=== PATIENT | female | born 1950 | race Native Hawaiian/Other Pacific Islander ===

== ENCOUNTER → 2016-11-07 | Outpatient (CLI) | payer OTHER | LOC: YCFC.O 09:32 | PROVIDERS: ATTEND Nurse Practitioner Family | DX: E78.5 Hyperlipidemia, unspecified (principal) ==

== ENCOUNTER → 2017-05-31 | Outpatient (CLI) | payer OTHER ==
--- NOTE | 2017-06-03 14:12 | MAM ---
EXAM DESCRIPTION: 3D Screening BILATERAL CLINICAL HISTORY: 66 years, Female, Screening mammogram COMPARISON: None TECHNIQUE: CC and MLO digital mammograms with 3-D tomosynthesis. No CAD utilized. FINDINGS: The breast parenchyma is heterogeneously dense which may decrease the sensitivity of mammography. There is no dominant mass nor any suspicious microcalcifications. Benign microcalcifications are present. IMPRESSION: BIRAD CATEGORY: 2 BENIGN FOLLOW-UP: Routine mammography screening. Electronically signed by: Anuel Vaca MD 06/03/2017 2:11 PM CDT
== END ==
LOC: MAMMO 09:41
PROVIDERS: ATTEND Nurse Practitioner Family
DX: Z12.31 Encounter for screening mammogram for malignant neoplasm of breast (principal)
CPT/HCPCS: 77063; G0202

== ENCOUNTER → 2018-01-08 | Outpatient (CLI) | payer OTHER ==
--- NOTE | 2018-01-09 08:28 | RAD ---
EXAM DESCRIPTION: Wrist,Left 3 Views CLINICAL HISTORY: 67 years, Female, UNSPECIFIED FRACTURE OF LEFT FOREARM COMPARISON: None FINDINGS: Left wrist 3 x-ray views reveals impacted mildly comminuted fracture of the distal left radius with fracture of the ulnar styloid. Fracture lines extend into the joint. On the oblique view, the longitudinally oriented distal radial fracture has a gap of 1.5 mm. The gap at the ulnar styloid avulsion is 1 mm. There is mild impaction of the distal radius. Distal radial articular surface is aligned with the lunate. Normal orientation of the carpal bones. Degenerative changes are seen in the lateral carpus and at the first metacarpal phalangeal joint. Prominent spurring at the interphalangeal joint of the thumb. Carpal relationships are well-maintained. Distal radius and ulna appear intact. Normal metacarpals. No significant arthritic changes are observed. IMPRESSION: Negative for fracture or dislocation. Electronically signed by: Toño Fernandez MD 01/09/2018 8:25 AM CDT
== END ==
LOC: RAD 10:34
PROVIDERS: ATTEND Orthopaedic Surgery
DX: S52.92XA Unspecified fracture of left forearm, initial encounter for closed fracture (principal)

== ENCOUNTER → 2018-01-17 | Outpatient (CLI) | payer OTHER ==
--- NOTE | 2018-01-18 08:14 | RAD ---
EXAM DESCRIPTION: Wrist,Left 3 Views CLINICAL HISTORY: 67 years, Female, PAIN IN LEFT WRIST COMPARISON: Previous study January 08, 2018 FINDINGS: Left wrist 3 x-ray views reveals comminuted fracture of the distal radius with impaction and mild splaying of fragments. Fracture line extends into the radiocarpal joint. Ulnar styloid is avulsed. The configuration is unchanged compared to previous study. No definite callus formation. Degenerative changes are seen in the lateral carpus and at the interphalangeal joint of the thumb. IMPRESSION: Unchanged alignment of distal left radial and ulnar fractures. Electronically signed by: Toño Fernandez MD 01/18/2018 8:12 AM CDT
== END ==
LOC: RAD 09:05
PROVIDERS: ATTEND Orthopaedic Surgery
DX: S52.502D Unspecified fracture of the lower end of left radius, subsequent encounter for closed fracture with routine healing (principal)

== ENCOUNTER → 2020-09-29 | Outpatient (CLI) | payer OTHER | LOC: LAB.O 10:51 | PROVIDERS: ATTEND Internal Medicine Gastroenterology | DX: R19.7 Diarrhea, unspecified (principal) ==

== ENCOUNTER → 2020-11-25 | Outpatient (CLI) | payer OTHER ==
--- NOTE | 2020-11-26 16:42 | CT ---
Procedure: CT LUNG SCREENING Exam Date: November 25, 2020. Ordering Provider: Stephanie Gordillo Clinical Indication: HISTORY OF TOBACCO ABUSE . Current cigarette smoker. 15 pack years. This patient meets eligibility criteria for low-dose CT lung cancer screening. Comparison: Baseline lung screening CT scan. Abdominal pelvic CT scan on this visit. Technique: Using a multislice scanner, sequential helical axial imaging was obtained in the thorax, 2.5 mm thickness, 2.5 mm separation, from the level of the thoracic inlet through the lung bases without IV contrast. A low dose protocol was utilized for BMI less than 30: BMI: 21. CTDI: 1.76 mGy. 120. kVp. 45 mA. DLP 69 mGy-cm. 2D sagittal and coronal reconstructed images, 6.0 mm thickness, were obtained. This exam was performed according to our departmental dose optimization program which includes use of automated exposure control, adjustment of the mA and/or kV according to patient size and/or use of iterative reconstruction technique. Nodule measurements under 10 mm are given as mean value of 3 axes diameters. FINDINGS: Lungs and large airways: Bilateral small blebs in a centrilobular distribution predominantly upper lobes. 3 mm solid subpleural nodule in the lateral apex, versus focal pleural thickening on axial series 2, image 26. 3 mm triangular-shaped nodule associated with the lateral horizontal fissure and the right middle lobe, on axial series 2, image 73. Bilateral lower lobe pleural-parenchymal scarring also in the inferior lingula. No abnormal nodules and no masses. No focal infiltrates. Pleura and space: Bilateral apical pleural thickening. No acute process. Mediastinum and donal: evaluation limited by low dose technique and lack of IV contrast. 9 mm smooth margin azygous node. Soft tissue structure with heterogeneous density in the fork between the origins of the right and left pulmonary arteries extending inferiorly and abutting the enhancing superior-medial left pulmonary venous trunk 2.7 x 1.8 x 1.3 cm with Hounsfield density -4. No calcifications. Heart and great vessels: Right coronary artery stent. Other coronary artery calcifications. Several brachiocephalic vessel calcifications also calcifications in the aortic arch and descending thoracic aorta. Ectasia of the ascending aortic arch 3.2 x 3.1 cm.. Chest wall, lower neck, axillae: Evaluation also limited by same factors as described above. Unremarkable. Upper abdomen: Evaluation limited by low-dose technique. No free air or free fluid. Osseous structures: Evaluation limited by low dose MIP technique. Minimal spondylosis thoracic spine. Arthrosis sternoclavicular and glenohumeral and acromioclavicular joints. IMPRESSION: 1. Perifissural nodule, less than 4 mm on the right abutting the horizontal fissure. Subpleural right apical nodule, less than 4 mm versus focal pleural thickening. Mild similar changes. No abnormal nodule and no mass. Fatty structure in the mediastinum possibly normal congenital shunt/benign structure or fatty tissue in the pulmonary artery recess. No follow-up recommended. [facility] Best Practice Recommendations: please see below for Lung RADS category and FOLLOW-UP.* *Lung RADS category Category 1 - No nodule or definitely benign nodules (probability of malignancy less than 1%). Follow-up: Continue annual screening with Low Dose Chest CT in 12 months. Electronically signed by: John Lin MD 11/26/2020 4:40 PM [facility]
--- NOTE | 2020-11-26 17:12 | CT ---
EXAM DESCRIPTION: Abdomen/Pelvis w/Contrast: Computed Tomography. CLINICAL HISTORY: 70 years Female ABNORMAL WEIGHT LOSS COMPARISON: None. TECHNIQUE: Spiral-axial scans at 5 x 5 mm intervals through the abdomen and pelvis, after nonionic IV contrast and water-soluble oral contrast. Axial 2.5 mm reconstructions. Coronal and sagittal 2.0 mm reconstructions. Delayed scans, liver through the pelvis. Axial-spiral 5mm. No adverse reactions. Total Exam DLP: 50 mGy-cm. This exam was performed according to our departmental dose-optimization program which includes automated exposure control, adjustment of the mA and/or kV according to patient size and/or use of iterative reconstruction technique; to reduce radiation dose to as low as reasonably achievable (ALARA). FINDINGS: Lung bases and pleura: Please see low-dose CT scan lung cancer screening examination today. Liver, Stomach, Spleen, Adrenal Glands: Stomach minimally distended with fluid including the antrum and pylorus. Minimally prominent distal right and left hepatic ducts. Prominent left hepatic lobe but smooth contour. Craniocaudal dimension of the right lobe 15 cm.. Pancreas, Gallbladder, Ducts: Gallbladder is contracted with possible small low density stone. Distal common bile duct dilated and elongated. Distal pancreatic duct visible in the elongated head, best seen on the coronal series 602. Small diverticula versus dilated duct in the pancreatic tail. Fat planes around the head are not well seen. Kidneys and Ureters: Small cortical cysts bilaterally. Otherwise unremarkable. Mesentery: No fatty stranding and fascial thickening. No free air or ascites. Aorta: Atherosclerotic calcification and tortuosity with no aneurysm. Small Bowel: Diffuse gas with more fluid distally but no air-fluid levels. Terminal Ileum/Cecum: Normal caliber terminal ileum with fecal material and gas in the cecum. Appendix not seen. No inflammatory changes. Colon: Mild to moderate distention throughout the colon with minimal gas but no air-fluid levels. Pelvic Organs: No radiodense stones in the urinary bladder. Vaginal cuff unremarkable. No free fluid in the pelvis. Spine and Bony Pelvis: Spondylosis in the lumbar spine without bulging or protruding disc posteriorly in the midline at L5-S1. Canal and foraminal narrowing. Spondylosis of the levels. Bilateral hip joint space narrowing. Bilateral hypertrophic marginal spurs. Lateral acetabula with over coverage of the femoral heads. Bilateral hypertrophic changes on the greater trochanter and iliac crests. Abdominal Wall/Back Soft Tissues: Negative. IMPRESSION: 1. Pancreatic head not well seen but appears to be elongated and coursing inferiorly along with the adjacent duodenum. Minimal dilation of the distal pancreatic duct in the head and the common bile duct. Fatty tissue around the duodenum and pancreatic head not well seen. Gallbladder is small and may contain a stone. Minimal dilation of the distal right and left intrahepatic ducts. Consider MRCP to evaluate the ducts. 2. Minimal constipation in the colon. Minimal distention of the small bowel but no air-fluid levels or obstruction. Spondylosis in the lumbar spine and bilateral hip joint arthrosis. Bilateral uncovertebral average of the femoral heads with hypertrophic acetabular and be associated with femoral acetabular impingement. Electronically signed by: John Lin MD 11/26/2020 5:10 PM [facility] [place]
== END ==
LOC: CT 09:52
PROVIDERS: ATTEND Nurse Practitioner Family
DX: Z01.812 Encounter for preprocedural laboratory examination (principal); F17.200 Nicotine dependence, unspecified, uncomplicated; K86.9 Disease of pancreas, unspecified; K82.9 Disease of gallbladder, unspecified; K59.00 Constipation, unspecified; M47.896 Other spondylosis, lumbar region; M16.0 Bilateral primary osteoarthritis of hip; M25.9 Joint disorder, unspecified; R91.8 Other nonspecific abnormal finding of lung field; R63.4 Abnormal weight loss